=== PATIENT | male | born 2000 | race Caucasian/White ===

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

== ENCOUNTER 2021-02-20 12:07 | Outpatient (CLI) | payer OTHER | END 2021-02-20 12:08 | disposition critical access hospital (66) | LOC: EMS 12:07 | DX: R55 Syncope and collapse (principal) | CPT/HCPCS: A0425; A0429 ==

== ENCOUNTER 2021-02-20 12:24 | Emergency (ER) | payer OTHER ==
[2021-02-20 12:41] VITALS: BP 141/78
--- NOTE | 2021-02-20 12:58 | ED Physician Documentation ---
PD HPI SYNCOPE - Stated complaint Stated Complaint: SYNCOPE - Chief complaint Chief Complaint: Neuro - History obtained from History obtained from: Patient - History of Present Illness Witnessed: Witnessed Timing - onset: How many minutes ago (30) Duration: Minutes (a minute or so.) Preceding symptoms: Light headed, Generalized weakness. No: Headache, Abdominal pain, Nausea / vomiting Associated symptoms: No: Headache, Chest pain, Abdominal pain Contributing factors: Decreased PO intake (he states he has worked long days and not eaten well nor regular fluid intake, and has had about 20 lb weight loss the past few months. Thirsty often. [place] tired with poor sleep last night and did not have any breakfast nor fluids today. Had lifted a heavy package at work, stood back up and fainted.). No: Recent med change Injury occurred: No: Fell, Head injury, Neck injury Treatment FINAL ARMATURE TESTER: Fluids (oral fluids) Similar symptoms before: Has not had sx before Recently seen: Not recently seen Review of Systems Constitutional: denies: Fever, Chills Nose: denies: Rhinorrhea / runny nose, Congestion Throat: denies: Sore throat Cardiac: denies: Chest pain / pressure, Palpitations Respiratory: denies: Dyspnea, Cough GI: denies: Abdominal Pain, Nausea, Vomiting, Diarrhea Neurologic: reports: Generalized weakness. denies: Focal weakness, Numbness, Headache, Head injury Endocrine: reports: Polyuria, Weight loss PD PAST MEDICAL HISTORY - Past Medical History Cardiovascular: None Respiratory: None Neuro: None Endocrine/Autoimmune: None GI: None : None HEENT: None Psych: None Musculoskeletal: None Derm: None - Past Surgical History Past Surgical History: Yes HEENT: Tonsil/Adenoidectomy - Present Medications Home Medications: Ambulatory Orders Medication Instructions Recorded Confirmed No Known Home Medications 08/24/20 02/20/21 - Allergies Allergies/Adverse Reactions: Allergies Allergy/AdvReac Type Severity Reaction Status Date / Time No Known Drug Allergies Allergy Verified 02/20/21 12:42 - Social History Does the pt smoke?: Yes Smoking Status: Current every day smoker Does the pt drink ETOH?: Yes Does the pt have substance abuse?: Yes - Immunizations Immunizations are current?: Yes - POLST Patient has POLST: No PD ED PE NORMAL - Vitals Vital signs reviewed: Yes - General General: Alert and oriented X 3, No acute distress, Well developed/nourished - HEENT HEENT: Pharynx benign - Neck Neck: Supple, no meningeal sign, No adenopathy - Cardiac Cardiac: RRR, No murmur - Respiratory Respiratory: Clear bilaterally - Abdomen Abdomen: Soft, Non tender - Derm Derm: Normal color, Warm and dry - Extremities Extremities: No tenderness to palpate, Normal ROM s pain, No edema, No calf tenderness / cord - Neuro Neuro: Alert and oriented X 3, No motor deficit, Normal speech Results - Vitals Vitals: Vital Signs - 24 hr 02/20/21 02/20/21 12:37 12:43 Temperature 36.4 C L 36.4 C L Heart Rate 68 68 Respiratory 15 15 Rate Blood Pressure 141/78 H 141/78 H O2 Saturation 96 99 Oxygen O2 Source Room air - EKG (time done) 12:32 Rate: Rate (enter#) (69) Rhythm: NSR [place]: Normal Intervals: Normal LA QRS: Normal Ischemia: Normal ST segments. No: ST elevation c/w ischemia, ST depression Compare to prior EKG: Old EKG unavailable - Labs Labs: Laboratory Tests 02/20/21 02/20/21 02/20/21 13:30 13:31 13:31 WBC 5.3 RBC 5.00 Hgb 14.8 Hct 41.7 L MCV 83.4 MCH 29.6 MCHC 35.5 RDW 11.9 L Plt Count 237 MPV 10.1 Neut # (Auto) 2.6 Lymph # (Auto) 2.0 [place] # (Auto) 0.5 Eos # (Auto) 0.2 Baso # (Auto) 0.0 Absolute Nucleated RBC 0.00 Nucleated RBC % 0.0 Sodium 136 Potassium 3.6 Chloride 100 L Carbon Dioxide 25 Anion Gap 11.0 BUN 9 Creatinine 0.8 Estimated GFR (MDRD) 125 Glucose 95 Calcium 9.4 Magnesium 2.4 Total Bilirubin 1.0 AST 23 ALT 20 Alkaline Phosphatase 46 Total Protein 7.1 Albumin 4.5 Globulin 2.6 Albumin/Globulin Ratio 1.7 Lipase 23 TSH Urine Color LT. YELLOW Urine Clarity CLEAR Urine pH 7.0 Ur Specific [place] <=1.005 Urine Protein NEGATIVE Urine Glucose (UA) NEGATIVE Urine Ketones NEGATIVE Urine Occult Blood NEGATIVE Urine Nitrite NEGATIVE Urine Bilirubin NEGATIVE Urine Urobilinogen 0.2 (NORMAL) Ur Leukocyte Esterase NEGATIVE Ur Microscopic Review NOT INDICATED Urine Culture Comments NOT INDICATED 02/20/21 13:31 WBC RBC Hgb Hct MCV MCH MCHC RDW Plt Count MPV Neut # (Auto) Lymph # (Auto) [place] # (Auto) Eos # (Auto) Baso # (Auto) Absolute Nucleated RBC Nucleated RBC % Sodium Potassium Chloride Carbon Dioxide Anion Gap BUN Creatinine Estimated GFR (MDRD) Glucose Calcium Magnesium Total Bilirubin AST ALT Alkaline Phosphatase Total Protein Albumin Globulin Albumin/Globulin Ratio Lipase TSH 0.54 Urine Color Urine Clarity Urine pH Ur Specific [place] Urine Protein Urine Glucose (UA) Urine Ketones Urine Occult Blood Urine Nitrite Urine Bilirubin Urine Urobilinogen Ur Leukocyte Esterase Ur Microscopic Review Urine Culture Comments PD MEDICAL DECISION MAKING - ED course Complexity details: considered differential (might be just poor nutrition and fluid intake. However, consider endocrine such as diabetes, hyperthyroid, or autoimmune. Denies substance use. ), d/w patient Departure - Departure Disposition: 01 Home, Self Care Clinical Impression: Weight loss Syncope Qualifiers: Syncope type: unspecified Qualified Code(s): R55 - Syncope and collapse Condition: Stable Record reviewed to determine appropriate education?: Yes Instructions: ED Fainting Unkn Cause Comments: Your EKG and heart rhythm are normal. Your blood tests are actually quite normal without any signs of anemia, electrolyte problems, kidney failure, thyroid abnormality nor diabetes. I presume your symptoms and recent weight loss relate to mainly poor nutrition and hydration. Try to stay regularly hydrated through the day and in particular in the mornings. Activity as tolerated. Regular diet and nutrition. Discharge Date/Time: 02/20/21 14:50
[2021-02-20 13:38] LABS: BASOPHILS % (AUTO) 0.8 %; EOSINOPHILS # (AUTO) 0.2 10^3/uL (0.0-0.7); EOSINOPHILS % (AUTO) 4.2 %; HCT - HEMATOCRIT 41.7 % (42.0-52.0); HGB - HEMOGLOBIN 14.8 g/dL (14.0-18.0); LYMPHOCYTES % (AUTO) 37.1 %; MEAN CORPUSCULAR HEMOGLOBIN 29.6 pg (27.0-31.0); MEAN CORPUSCULAR HGB CONC 35.5 g/dL (32.0-36.0); MEAN CORPUSCULAR VOLUME 83.4 fL (80.0-94.0); MEAN PLATELET VOLUME 10.1 fL (7.4-11.4); MONOCYTES # (AUTO) 0.5 10^3/uL (0.0-1.0); MONOCYTES % (AUTO) 9.5 %; NEUTROPHILS # (AUTO) 2.6 10^3/uL (1.5-6.6); NEUTROPHILS % (AUTO) 48.2 %; PLT - PLATELET COUNT 237 10^3/uL (130-450); RED CELL DISTRIBUTION WIDTH 11.9 % (12.0-15.0); WHITE BLOOD COUNT 5.3 x10^3/uL (4.8-10.8)
[2021-02-20 13:40] LABS: BILIRUBIN,URINE NEGATIVE (NEGATIVE); CLARITY,URINE CLEAR (CLEAR); GLUCOSE, URINE (UA) NEGATIVE (NEGATIVE); KETONES,URINE (UA) NEGATIVE (NEGATIVE); LEUKOCYTE ESTERASE, URINE NEGATIVE (NEGATIVE); NITRITE,URINE NEGATIVE (NEGATIVE); OCCULT BLOOD,URINE NEGATIVE (NEGATIVE); PROTEIN,URINE NEGATIVE (NEGATIVE); UROBILINOGEN,URINE 0.2 (NORMAL) E.U./dL (NORMAL)
[2021-02-20 14:18] LABS: ALBUMIN 4.5 g/dL (3.2-5.5); ALBUMIN/GLOBULIN RATIO 1.7 (1.0-2.2); CALCIUM 9.4 mg/dL (8.5-10.3); CREATININE 0.8 mg/dL (0.6-1.2); MAGNESIUM 2.4 mg/dL (1.7-2.8); POTASSIUM 3.6 mmol/L (3.5-5.0); TOTAL PROTEIN 7.1 g/dL (6.7-8.2)
== END 2021-02-20 14:50 | disposition home or self-care (01) ==
LOC: ED 12:24
DX: R55 Syncope and collapse (principal); R63.4 Abnormal weight loss; F17.200 Nicotine dependence, unspecified, uncomplicated
CPT/HCPCS: 36415; 80053; 81001; 81003; 83690; 83735; 84443; 85025; 87086; 93005; 99282; 99283

== ENCOUNTER 2021-04-23 16:34 | Emergency (ER) | payer OTHER ==
[2021-04-23 16:42] VITALS: BP 133/70
--- NOTE | 2021-04-23 17:23 | XRAY Report ---
PROCEDURE: Shoulder 3 View LT INDICATIONS: L shoulder pain, no injury TECHNIQUE: 3 views of the shoulder were acquired. COMPARISON: None. FINDINGS: BONES: No acute, displaced fracture. The joint spaces are maintained. SOFT TISSUES: No focal abnormality or appreciable pneumothorax. IMPRESSION: 1.No acute osseous abnormality. Reviewed by: Chandana Orr MD on 04/23/2021 5:21 PM PST Approved by: Chandana Orr MD on 04/23/2021 5:21 PM PST Station ID: [id number]
[2021-04-23] MEDS ORDERED: DEXAMETHASONE 10 MG/ML VIAL PO STA (19:28)
[2021-04-23] MEDS ORDERED: MELOXICAM 7.5 MG TABLET PO STA (19:28)
[2021-04-23] MEDS ORDERED: CHERRY SYRUP 10 ML UDC PO ONE (19:28)
--- NOTE | 2021-04-23 19:31 | ED Physician Documentation ---
History of Present Illness - Stated complaint Stated Complaint: LT SHOULDER PX - Chief complaint Chief Complaint: Ext Problem - History obtained from History obtained from: Patient - History of Present Illness Timing: How many days ago (3-4) Pain level max: 7 Pain level now: 4 - Additonal information Additional information: 21-year-old male presents to the emergency department with left shoulder pain. Worse with movement, better with rest. Does not recall any specific injury. 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 No numbness or tingling. No deformity. Review of Systems Constitutional: denies: Fever, Chills GI: denies: Vomiting, Diarrhea Musculoskeletal: denies: Neck pain, Back pain Neurologic: denies: Headache PD PAST MEDICAL HISTORY - Past Medical History Past Medical History: Yes Cardiovascular: None Respiratory: None Neuro: None Endocrine/Autoimmune: None GI: None : None HEENT: None Psych: None Musculoskeletal: None Derm: None - Past Surgical History Past Surgical History: Yes HEENT: Tonsil/Adenoidectomy - Present Medications Home Medications: Ambulatory Orders Medication Instructions Recorded Confirmed Meloxicam [Mobic] 7.5 mg PO BID PRN #20 tablet 04/23/21 - Allergies Allergies/Adverse Reactions: Allergies Allergy/AdvReac Type Severity Reaction Status Date / Time No Known Drug Allergies Allergy Verified 04/23/21 16:43 - Social History Does the pt smoke?: Yes Smoking Status: Current every day smoker Does the pt drink ETOH?: Yes Does the pt have substance abuse?: Yes - Immunizations Immunizations are current?: Yes - POLST Patient has POLST: No PD ED PE NORMAL - Vitals Vital signs reviewed: Yes - General General: Alert and oriented X 3, No acute distress - HEENT HEENT: Moist mucous membranes - Neck Neck: Supple, no meningeal sign - Cardiac Cardiac: RRR - Respiratory Respiratory: No respiratory distress, Clear bilaterally - Derm Derm: Warm and dry - Extremities Extremities: Other (TTP over the R anterior glenohumeral joint, NVI. Pain with external rotation > internal rotation. Limited ROM 2/2 pain) - Neuro Neuro: Alert and oriented X 3 - Psych Psych: Normal mood, Normal affect Results - Vitals Vitals: Vital Signs - 24 hr 04/23/21 16:39 Temperature 35.9 C L Heart Rate 89 Respiratory 16 Rate Blood Pressure 133/70 H O2 Saturation 100 Oxygen O2 Source Room air - Rads (name of study) L shoulder xray Radiology: Final report received, EMP read contemporaneously, See rad report PD MEDICAL DECISION MAKING - ED course Complexity details: reviewed results, considered differential, d/w patient ED course: 21-year-old male with what appears to be rotator cuff tendinitis. No acute findings on x-ray. We will place on anti-inflammatories for home and have him follow-up with orthopedics. Instructed on rotator cuff exercises. Neurovascularly intact. Patient counseled regarding signs and symptoms for which I believe and urgent re-evaluation would be necessary. Patient with good understanding of and agreement to plan and is comfortable going home at this time This document was made in part using voice recognition software. While efforts are made to proofread this document, sound alike and grammatical errors may occur. Departure - Departure Disposition: 01 Home, Self Care Clinical Impression: Rotator cuff tendonitis Qualifiers: Laterality: left Qualified Code(s): M75.82 - Other shoulder lesions, left shoulder Condition: Good Instructions: ED Tendinitis Rotator Cuff Follow-Up: Orthopedic Care [Provider Group] - Within 1 week Prescriptions: Meloxicam [Mobic] 7.5 mg PO BID PRN #20 tablet PRN Reason: Pain Comments: Follow-up with your doctor and/or orthopedics for further care. This appears to be a rotator cuff tendinitis. Limit lifting with the arm until it is healed. Continue stretching as we discussed tonight with external rotation and wall walks. You can find other exercises on YouTube. Your doctor may want to refer you to physical therapy as well. Your prescriptions were sent to [facility]. Forms: Activity restrictions Discharge Date/Time: 04/23/21 19:30
== END 2021-04-23 19:30 | disposition home or self-care (01) ==
LOC: ED 16:34
DX: M75.102 Unspecified rotator cuff tear or rupture of left shoulder, not specified as traumatic (principal); F17.200 Nicotine dependence, unspecified, uncomplicated
CPT/HCPCS: 73030; 99282; 99283; A9270